=== PATIENT | male | born 1975 | race Caucasian/White ===

== ENCOUNTER 2023-07-01 12:00 | Emergency (ER) | payer SELFPAY ==
[2023-07-01 12:10] VITALS: BP 134/91; PULSE 98; RESP 16; TEMP 36.7; O2SAT 98; BMI 29.8
--- NOTE | 2023-07-01 12:26 | W.ED.BACK ---
HPI - Back Pain/Injury General: Chief Complaint: Back Pain/Injury Stated Complaint: lower back pain Time Seen by Provider: 07/01/23 12:08 Source: patient Mode of arrival: ambulatory Limitations: no limitations History of Present Illness: 47-year-old male states he had a history of low back pain in the past he states that he had stood up felt a twinge in his back this morning has been having increasing pain states pains in the right low back and knees had some spasm he feels like with some pain down his right leg no severe pain denies any bowel or bladder incontinence he is ambulatory denies any fever Associated symptoms: Deny abdominal pain, chills, fever(s), nausea or vomiting Review of Systems Const: Denies: fever(s), chills, body aches or change in appetite ENMT: Denies: throat pain or dental pain Card: Denies: chest pain Resp: Denies: dyspnea GI: Denies: abdominal pain, nausea, vomiting or diarrhea Musc: Reports: back pain; Denies: neck pain Skin/Breast: Denies: rash Neuro: Denies: headache(s) Physical Exam Const: COMMON NORMALS: no acute distress, patient oriented x3 and healthy appearing HENMT: COMMON NORMALS: normocephalic and atraumatic HEAD & SCALP: normocephalic and atraumatic Neck/C-Spine: COMMON NORMALS: full ROM and supple Chest: COMMONS NORMALS: normal inspection of the chest Resp: COMMON NORMALS: normal respiratory effort Back/Pelvis: OTHER: Tenderness to right low back no midline tenderness Extremity: COMMON NORMALS: normal to inspection and full ROM Neuro: COMMON NORMALS: patient oriented x3, moves all extremities and no focal motor deficits Psych: COMMON NORMALS: mental status grossly normal, Normal thought process present and cooperative THOUGHT PROCESS: Normal thought process present Skin: COMMON NORMALS: no rashes or lesions noted and no wounds GENERAL SKIN EXAM: no rashes or lesions noted Course Vital Signs: Vital signs: Vital Signs Temperature 98.0 F 07/01/23 12:10 Pulse Rate 98 07/01/23 12:10 Respiratory Rate 16 07/01/23 12:10 Blood Pressure 134/91 07/01/23 12:10 Pulse Oximetry 98 07/01/23 12:10 Oxygen Delivery Me thod Room Air 07/01/23 12:10 MDM - Back Pain/Injury Medical Decision Making Patient presents here with low back pains likely muscular in nature no signs of epidural abscess or cord compression we will place him on Naprosyn almost relaxants history rest and ice follow-up with PCP return if worsening. Medical Records I reviewed the patient's medical records. No radiology studies performed this visit Discharge Plan Discharge Patient Disposition: Home Clinical Impression: Low back pain Condition: Stable Prescriptions: New methocarbamol 750 mg tablet 750 mg PO Q6H PRN (Reason: spasms) Qty: 20 0RF Naprosyn 500 mg tablet 500 mg PO BID PRN (Reason: pain) Qty: 20 0RF Discharge Orders: Discharge ED (Routine); Ordered 07/01/23 Ordered By: Birdie Rolle Discharge Diet: Advance as tolerated Discharge Activity: Resume usual activity Patient Instructions: Acute Low Back Pain (ED) Coding Level of Care Code ED Library Technical Assistant for Frank Holcomb
[2023-07-01] MEDS: HYDROcodone-acetaminophen 7.5-325 mg Tablet 1 TAB PO (12:41)
[2023-07-01] MEDS: methocarbamol 750 mg Tablet 1500 MG PO (12:41)
[2023-07-01] MEDS: ketorolac 60 mg/2 mL INJ IM (12:45)
[2023-07-01 12:46] VITALS: BP 137/92; PULSE 95; RESP 16; TEMP 36.7; O2SAT 99
[2023-07-01] MEDS: dexamethasone 10 mg/mL INJ IM (12:46)
== END 2023-07-01 12:47 | disposition home or self-care (01) ==
PROVIDERS: Emergency Provider Emergency Medicine
DX: M54.50 Low back pain, unspecified (principal)
CPT/HCPCS: 96372; 99284; J1100; J1885